=== PATIENT | female | born 1950 | race Caucasian/White ===

== ENCOUNTER → 2021-09-09 | Day surgery (SDC) | payer MEDICARE, OTHER ==
[2021-09-06 09:19] LABS: BASOPHILS # (AUTO) 0.1 (0.0-0.1); BASOPHILS % 0.8 % (0.0-1.0); EOSINOPHILS # (AUTO) 0.3 (0.0-0.4); HEMATOCRIT 40.6 % (34.2-44.1); HEMOGLOBIN 12.8 g/dL (12.0-16.0); LYMPHOCYTES # (AUTO) 2.2 (1.0-3.2); MEAN CORPUSCULAR HEMOGLOBIN 28.5 pg (28-32); MEAN CORPUSCULAR HGB CONC 31.5 g/dL (31-35); MEAN CORPUSCULAR VOLUME 90.4 fL (81-99); MONOCYTES # (AUTO) 0.8 (0.2-0.8); MONOCYTES % 10.3 % (4.4-11.3); NEUTROPHILS # (AUTO) 4.4 (2.1-6.9); NEUTROPHILS % 56.5 % (38.7-80.0); PLATELET COUNT 239 x10e3/uL (140-360); RED BLOOD COUNT 4.49 x10e6/uL (3.6-5.1)
[~2021-09-09] MED LIST: ASPIRIN81 MG PO; CALTRATE-600 W1 EACH PO; CYMBALTA30 MG PO; FAMOTIDINE20 MG PO; FISH OIL500 MG PO; FUROSEMIDE40 MG PO; GABAPENTIN300 MG PO; LAMICTAL100 MG PO; LOSARTAN POTAS100 MG PO; METOPROLOL TART50 MG PO; NORCO 10-325 T1 EACH PO; NORTRIPTYLINE H25 MG PO; PLAQUENIL200 MG PO; PRAVASTATIN SOD40 MG PO; QUETIAPINE FUMA25 MG PO; ROPINIROLE HCL1 MG PO; SIMVASTATIN40 MG PO; THEOPHYLLINE400 MG PO; TRAZODONE HCL50 MG PO; VITAMIN B-122000 MCG PO; stiolto
[2021-09-09 14:40] VITALS: BP 138/85
== END | disposition home or self-care (01) ==
LOC: OR 10:57
PROVIDERS: ATTEND Internal Medicine Gastroenterology
DX: Z12.11 Encounter for screening for malignant neoplasm of colon (principal); D12.3 Benign neoplasm of transverse colon; D12.4 Benign neoplasm of descending colon; D12.5 Benign neoplasm of sigmoid colon; K64.1 Second degree hemorrhoids; Z71.3 Dietary counseling and surveillance; G47.33 Obstructive sleep apnea (adult) (pediatric); E66.9 Obesity, unspecified; J44.9 Chronic obstructive pulmonary disease, unspecified; I11.0 Hypertensive heart disease with heart failure; I50.9 Heart failure, unspecified; F41.9 Anxiety disorder, unspecified; F32.A Depression, unspecified; Z01.810 Encounter for preprocedural cardiovascular examination; Z01.812 Encounter for preprocedural laboratory examination; Z20.822 Contact with and (suspected) exposure to COVID-19; Z68.31 Body mass index [BMI] 31.0-31.9, adult
CPT/HCPCS: 36415; 45385; 85025; 93005; U0002; 45378